=== PATIENT | female | born 1980 | race Caucasian/White ===

== ENCOUNTER 2023-06-30 19:11 | Emergency (ER) | payer OTHER, SELFPAY ==
--- NOTE | ~2023-06-30 | CT_ITS ---
EXAMINATION: CT brain wo con DATE: 06/30/2023 21:17 INDICATION: syncope . TECHNIQUE: Computed tomography (CT) of the head was performed without intravenous contrast. The mA wa s adjusted according to patient size. Iterative reconstruction technique was employed. The dose-lengt h product was 605.33 mGy-cm. COMPARISON: None. FINDINGS: No acute intracranial hemorrhage or extra-axial fluid collection. No hydrocephalus, mass, or herniation. No acute ischemic infarct. Unremarkable dural venous sinus attenuation. No acute osseous abnormality. Left parietal scalp contusion The aerated spaces are clear. IMPRESSION: No acute intracranial process. Reviewed, dictated and finalized at location K. INE CAPTAIN
--- NOTE | ~2023-06-30 | CT_ITS ---
EXAMINATION: CT cervical spine wo con DATE: 06/30/2023 21:17 INDICATION: pain TECHNIQUE: Computed tomography (CT) of the cervical spine was performed without intravenous contrast. Automated exposure control and iterative reconstruction technique were employed. The dose-length pro duct was 184.30 mGy-cm. COMPARISON: None. FINDINGS: Vertebral Body Alignment: Intact. Craniocervical and atlantoaxial alignment: No significant degenerative change. Alignment intact. Osseous structures/fracture: No evidence of a lytic or blastic process in the visualized spine. No e vidence of acute fracture. Cervical soft tissues: The paraspinal soft tissues planes are maintained. Degenerative changes: No significant degenerative changes. IMPRESSION: No acute fracture or traumatic malalignment in the cervical spine. Reviewed, dictated and finalized at location K. 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
[2023-06-30 19:42] VITALS: BP 105/65; PULSE 92; RESP 20; TEMP 36.4; O2SAT 100
--- NOTE | 2023-06-30 19:46 | ECG_ITS ---
Measurements Intervals [place] Rate: 93 P: 75 TX: 167 QRS: -1 QRSD: 106 T: 65 QT: 365 QTc: 454 Interpretive Statements SINUS RHYTHM WITH SINUS ARRHYTHMIA POSSIBLE LEFT ATRIAL ENLARGEMENT INCOMPLETE RIGHT BUNDLE BRANCH BLOCK DELAYED PRECORDIAL R/S TRANSITION BASELINE ARTIFACT- I, II, III, AVL BORDERLINE ECG NO PREVIOUS ECG AVAILABLE FOR COMPARISON Electronically Signed On 07-01-2023 6:15:01 CONVEYANCER by Yariel Brito D.O.
[2023-06-30 20:10] LABS: Basophils Percent Auto 0.3 % (0.2-1.2); Eosinophils Percent Auto 0.4 % (0-4.4); Hematocrit 31.5 % (37.0-47.0); Hemoglobin 10.3 g/dL (12.0-15.0); Immature Granulocyte Absolute 0.02 K/mm3 (0.00-0.031); Immature Granulocyte Percent A 0.3 % (0-0.5); Lymphocytes Absolute Auto 1.73 K/mm3 (0.9-3.2); Lymphocytes Percent Auto 25.3 % (18.3-44.2); Mean Corpuscular HGB Conc 32.7 g/dl (32-36); Mean Corpuscular Hemoglobin 30.5 pg (26-34); Mean Corpuscular Volume 93.2 fl (80-100); Mean Platelet Volume 10.6 fl (7.4-10.4); Monocytes Absolute Auto 0.4 K/mm3 (0.1-0.6); Monocytes Percent Auto 5.8 % (2.6-8.5); Neutrophils Absolute Auto 4.6 K/mm3 (1.3-6.7); Neutrophils Percent Auto 67.9 % (45.5-73.1); Platelet Count Result 158 k/mm3 (150-375); Red Blood Count 3.38 M/mm3 (4.2-5.4); Red Cell Distribution Width 11.8 % (11.5-14.5); White Blood Count 6.8 K/mm3 (4.5-10.0)
--- NOTE | 2023-06-30 20:10 | ED.GENADULT ---
HPI - General Adult General Chief complaint: Unspecified Stated complaint: seizure vs syncope Time Seen by Provider: 06/30/23 20:37 History of Present Illness HPI narrative: patient presents the emergency department for seizure activity. She had a seizure once in the past and had a normal workup including EEG and head CT. She was seen by neurologist at [facility]. She was told if she had another seizure she would need to start seizure medications. Tonight she went into the bathroom because she was feeling nauseous. Her kids heard her hit the ground. Reportedly she had seizure activity and was postictal afterwards. Patient also notes a bite her tongue. Top of head sore with contusion. patient also has generalized Neck discomfort. contributes to the history. The patient is very pleasant and in no distress Related Data Allergies Allergy/AdvReac Type Severity Reaction Status Date / Time No Known Allergies Allergy Verified 06/30/23 19:49 Review of Systems Review of Systems: negative except for documented in the HPI Exam Narrative: GENERAL: Well-appearing, well-nourished, and in no acute distress. HEAD: Normocephalic, traumatic contusion top of head EYES: PERRLA and EOMI. ENT: Nares clear, no rhinorrhea or epistaxis. Mucous membranes moist. NECK: Supple. no tenderness CHEST: Clear to auscultation. No respiratory distress. HEART: Regular rate and rhythm. ABDOMEN: Soft, nontender, nondistended. EXTREMITIES: Normal range of motion. No edema. SKIN: Warm, dry, no rash. NEURO: No focal deficits. Alert and oriented x3. PSYCH: Normal mood and affect. Course Vital Signs Vital signs: Vital Signs Temperature 36.4 C 06/30/23 19:42 Pulse Rate 92 06/30/23 19:42 Respiratory Rate 20 06/30/23 19:42 Blood Pressure 105/65 06/30/23 19:42 Pulse Oximetry 100 06/30/23 19:42 Oxygen Delivery Room Air 06/30/23 19:42 Temperature 36.4 C 06/30/23 19:42 Pulse Rate 92 06/30/23 19:42 Respiratory Rate 20 06/30/23 19:42 Blood Pressure 105/65 06/30/23 19:42 Pulse Oximetry 100 06/30/23 19:42 Oxygen Delivery Room Air 06/30/23 19:42 Medical Decision Making MDM Narrative Medical decision making narrative: differential diagnosis includes but not limited to seizure, electrolyte abnormality, traumatic brain injury, infection 22:28p labs grossly unremarkable. Head CT and neck CT ordered and reviewed as normal. Will discuss patient's presentation with neurologist on-call for [facility]. Will likely DC with Keppra Vital Signs Vital Signs: Vital Signs Temperature 36.4 C 06/30/23 19:42 Pulse Rate 92 06/30/23 19:42 Respiratory Rate 20 06/30/23 19:42 Blood Pressure 105/65 06/30/23 19:42 Pulse Oximetry 100 06/30/23 19:42 Oxygen Delivery Room Air 06/30/23 19:42 Temperature 36.4 C 06/30/23 19:42 Pulse Rate 92 06/30/23 19:42 Respiratory Rate 20 06/30/23 19:42 Blood Pressure 105/65 06/30/23 19:42 Pulse Oximetry 100 06/30/23 19:42 Oxygen Delivery Room Air 06/30/23 19:42 Lab Data 06/30/23 20:03 06/30/23 20:03 Labs: Lab Results 06/30/23 Range/Units 20:03 WBC 6.8 (4.5-10.0) K/mm3 RBC 3.38 L (4.2-5.4) M/mm3 Hgb 10.3 L (12.0-15.0) g/dL Hct 31.5 L (37.0-47.0) % MCV 93.2 (80-100) fl MCH 30.5 (26-34) pg MCHC 32.7 (32-36) g/dl RDW 11.8 (11.5-14.5) % Plt Count 158 (150-375) k/mm3 MPV 10.6 H (7.4-10.4) fl Immature Gran % (Auto) 0.3 (0-0.5) % Neut % (Auto) 67.9 (45.5-73.1) % Lymph % (Auto) 25.3 (18.3-44.2) % [place] % (Auto) 5.8 (2.6-8.5) % Eos % (Auto) 0.4 (0-4.4) % Baso % (Auto) 0.3 (0.2-1.2) % Lymph # (Auto) 1.73 (0.9-3.2) K/mm3 [place] # (Auto) 0.4 (0.1-0.6) K/mm3 Eos # (Auto) 0.0 (0-0.3) K/mm3 Baso # (Auto) 0.0 (0.0-0.1) K/mm3 Abs Immat Gran (auto) 0.02 (0.00-0.031) K/mm3 Absolute Neuts (auto) 4.6
[2023-06-30 20:21] LABS: Alanine Aminotransferase 28 U/L (6-35); Albumin Level 3.9 g/dL (3.5-5.1); Alkaline Phosphatase 47 U/L (38-126); Anion Gap 10 mmol/L (8-16); Aspartate Amino Transferase 23 U/L (14-36); Bilirubin,Total 0.3 mg/dL (0.2-1.3); Blood Urea Nitrogen 14 mg/dL (7-17); Calcium 8.1 mg/dL (8.4-10.2); Carbon Dioxide 22 mmol/L (22-30); Chloride 107 mmol/L (98-107); Estimated CRCL calculation 80 ml/min; Estimated Glomerular Filt Rate > 60; Glucose 118 mg/dL (65-110); Potassium 3.5 mmol/L (3.4-5.0); Sodium 139 mmol/L (137-145)
[2023-06-30] MEDS: MAGNES & ALUM HYD/SIMETH/DIPHENHYD/LIDOCAINE 119 ML MOUTHWASH BY MOUTH (21:42)
[2023-06-30 21:50] VITALS: BP 117/84; PULSE 80; PULSE 92; RESP 14; RESP 20; O2SAT 100
[2023-06-30 22:30] VITALS: BP 114/78; PULSE 80; RESP 14; O2SAT 99
[2023-07-01] MEDS: levETIRAcetam 500 MG TABLET PO (00:03)
[2023-07-01 00:05] VITALS: BP 110/74; PULSE 82; RESP 16; O2SAT 98
== END 2023-07-01 00:06 | disposition home or self-care (01) ==
PROVIDERS: Emergency Provider Emergency Medicine; PCP Pediatrics
DX: R56.9 Unspecified convulsions (principal); I45.10 Unspecified right bundle-branch block; R94.31 Abnormal electrocardiogram [ECG] [EKG]
CPT/HCPCS: 36415; 70450; 72125; 80053; 85025; 93005; 99284; A9270